=== PATIENT | female | born 1960 | race American Indian/Alaskan Native ===

== ENCOUNTER 2017-08-28 17:12 | Emergency (ER) | payer SELFPAY ==
[2017-08-28] MEDS ORDERED: MAGNESIUM SULFATE 2GM/50ML 2 GM/50 ML BAG IV ONE (17:33)
[2017-08-28] MEDS ORDERED: BENADRYL IV ONE (17:33)
[2017-08-28] MEDS ORDERED: REGLAN IV ONE (17:33)
[2017-08-28] MEDS ORDERED: XYLOCAINE TOPICAL 4% TP ONE (17:33)
[2017-08-28 17:40] LABS: Basophils % (Auto) 0.9 % (0.0-1.8); Eosinophils % (Auto) 2.3 % (0.0-4.3); Hemoglobin 11.6 gm/dl (10.1-14.3); Mean Corpuscular HGB Conc 32 % (30-34); Mean Corpuscular Hemoglobin 29 pg (28-32); Mean Corpuscular Volume 90 fl (79-97); Platelet Count 288 K/mm3 (140-440); Red Cell Distribution Width 14.7 % (13.2-15.2)
[2017-08-28] MEDS ORDERED: APRESOLINE IV ONE (17:41)
--- NOTE | 2017-08-28 17:41 | Emergency Department Report ---
ED Headache HPI - General Chief Complaint: Headache Stated Complaint: HEADACHE Time Seen by Provider: 08/28/17 18:03 Source: patient, family, EMS (ems notes not available at time of chart dictation), RN notes reviewed - History of Present Illness Initial Comments: This is a 57-year-old female. The patient is previously unknown to this provider. She has a past medical history of stroke, hypertension, high cholesterol. Patient describes a history of chronic headaches. She presents to the ER with EMS with a complaint of headache. The headache is right-sided, retro-orbital and radiates to the back of several region. Patient reports headache has been present for months, and gradually got worse over the past week. The headache increases with exposure to light, exposure to sound. The headache is not sudden or thunderclap in nature, it did not reach maximal intensity within an hour. There is no neck pain, there is no neck stiffness. No vomiting, no weakness, numbness, ataxia. Timing/Duration: other Quality: moderate Head Injury Location: frontal, temporal, occipital Recent Head Trauma: chronic headaches Modifying Factors: worse with: exposure to light Associated Symptoms: denies: confusion, fatigue, facial pain, fever/chills, flushing, nausea/vomiting, nasal congestion, nasal drainage, numbness in legs/ feet, seizures, sinus infection, stiff neck, vision changes, weakness Allergies/Adverse Reactions: Allergies No Known Allergies Allergy (Verified 08/28/17 17:18) Home Medications: Ambulatory Orders Acetaminophen [Tylenol Arthritis] 650 mg PO Q6HR PRN #30 tablet.er 08/28/17 Antacid 1 tab PO PRN PRN 08/28/17 Aspirin BABY CHEW TAB 81 mg PO DAILY 08/28/17 Atorvastatin 80 mg PO DAILY 08/28/17 Citalopram 20 mg PO DAILY 08/28/17 Colace CAP 100 mg PO PRN PRN 08/28/17 Losartan Potassium 25 mg PO DAILY 08/28/17 Metoclopramide [Reglan] 10 mg PO QID PRN #30 tablet 08/28/17 Plavix 75 mg PO DAILY 08/28/17 ED Review of Systems ROS: Stated complaint: HEADACHE Other details as noted in HPI ED Past Medical Hx - Social History Smoking Status: Never Smoker Substance Use Type: None - Medications Home Medications: Home Medications Medication Instructions Recorded Confirmed Last Taken Type Acetaminophen [Tylenol Arthritis] 650 mg PO Q6HR PRN #30 tablet.er 08/28/17 Unknown Rx Antacid 1 tab PO PRN PRN 08/28/17 08/28/17 08/28/17 History Aspirin BABY CHEW TAB 81 mg PO DAILY 08/28/17 08/28/17 08/28/17 History Atorvastatin 80 mg PO DAILY 08/28/17 08/28/17 Unknown History Citalopram 20 mg PO DAILY 08/28/17 08/28/17 08/28/17 History Colace CAP 100 mg PO PRN PRN 08/28/17 08/28/17 Unknown History Losartan Potassium 25 mg PO DAILY 08/28/17 08/28/17 08/28/17 History Metoclopramide [Reglan] 10 mg PO QID PRN #30 tablet 08/28/17 Unknown Rx Plavix 75 mg PO DAILY 08/28/17 08/28/17 08/28/17 History ED Physical Exam - General Limitations: No Limitations General appearance: alert, in no apparent distress - Head Head exam: Present: atraumatic, normocephalic, other (there is no temporal tenderness) - Eye Eye exam: Present: normal appearance, PERRL, EOMI, other (visual acuity intact to finger counting, color perception, reading at a close distance). Absent: nystagmus - ENT ENT exam: Present: normal exam, normal orophraynx, mucous membranes moist, TM's normal bilaterally, normal external ear exam - Neck Neck exam: Present: normal inspection, full ROM - Respiratory Respiratory exam: Present: normal lung sounds bilaterally. Absent: respiratory distress, chest wall tenderness - Cardiovascular Cardiovascular Exam: Present: regular rate, normal rhythm, normal heart sounds. Absent: bradycardia, tachycardia, irregular rhythm, systolic murmur, diastolic murmur, rubs, gallop - GI/Abdominal GI/Abdominal exam: Present: soft, normal bowel sounds. Absent: distended, tenderness, guarding, rebound, rigid, pulsatile mass - Extremities Exam Extremities exam: Present: normal inspection, full ROM, normal capillary refill. Absent: pedal edema, joint swelling, calf tenderness - Back Exam Back exam: Present: normal inspection, full ROM. Absent: tenderness, CVA tenderness (R), paraspinal tenderness, vertebral tenderness - Neurological Exam Neurological exam: Present: alert, oriented X3, CN II-XII intact, normal gait, other (Extraocular movements intact. Tongue midline. No facial droop. Facial sensation intact to light touch in the V1, V2, V3 distribution bilaterally. 5 and 5 strength in 4 extremities.. Sensation is intact to light touch in 4 extremities.). Absent: motor sensory deficit - Psychiatric Psychiatric exam: Present: normal affect, normal mood - Skin Skin exam: Present: warm, dry, intact, normal color. Absent: rash ED Course Vital Signs 08/28/17 08/28/17 08/28/17 17:20 17:49 18:10 Temperature 98 F Pulse Rate 79 74 Respiratory 16 16 Rate Blood Pressure 178/115 159/112 Blood Pressure 106/68 [Left] O2 Sat by Pulse 98 97 Oximetry 08/28/17 19:40 Temperature Pulse Rate 98 H Respiratory 16 Rate Blood Pressure Blood Pressure 136/63 [Left] O2 Sat by Pulse 96 Oximetry - Reevaluation(s) Reevaluation #1: 08/28/17 18:04 Differential diagnosis, including without limited to: Intracranial hemorrhage, migraine headache, tension headache, cluster headache, headache etiology not otherwise specified Assessment and plan: A 7-year-old female with acute on chronic headache. Headache not historically consistent with subarachnoid hemorrhage. Patient quite hypertensive, doubt intracranial hemorrhage, but we will obtain noncontrast CT scan of the brain to exclude spontaneous intracranial hemorrhage. Blood pressure currently in the 170s, patient's headache will be treated with Reglan, Benadryl, intranasal lidocaine, and magnesium sulfate. GCS of 15, NIH score of 0, no neck pain or neck stiffness, patient indicates no family history of aneurysmal disease. Reevaluation #2: 08/28/17 19:31 Patient feeling much improved. Vital signs improved. CT scan of the brain is pending. Reevaluation #3: 08/28/17 19:55 ct head negative for acute findings chronic findings are noted feels improved kamini be discharged repeat neuro exam within normal limits ED Medical Decision Making - Lab Data Result diagrams: 08/28/17 17:24 08/28/17 17:24 Vital Signs 08/28/17 08/28/17 17:20 17:49 Temperature 98 F Pulse Rate 79 Respiratory 16 Rate Blood Pressure 178/115 159/112 O2 Sat by Pulse 98 Oximetry Lab Results 08/28/17 08/28/17 08/28/17 Range/Units 17:24 17:24 17:24 WBC 5.0 (4.5-11.0) K/mm3 RBC 4.00 (3.65-5.03) M/mm3 Hgb 11.6 (10.1-14.3) gm/dl Hct 36.0 (30.3-42.9) % MCV 90 (79-97) fl MCH 29 (28-32) pg MCHC 32 (30-34) % RDW 14.7 (13.2-15.2) % Plt Count 288 (140-440) K/mm3 Lymph % (Auto) 47.4 H (13.4-35.0) % [place] % (Auto) 10.7 H (0.0-7.3) % Eos % (Auto) 2.3 (0.0-4.3) % Baso % (Auto) 0.9 (0.0-1.8) % Lymph # 2.4 (1.2-5.4) K/mm3 [place] # 0.5 (0.0-0.8) K/mm3 Eos # 0.1 (0.0-0.4) K/mm3 Baso # 0.0 (0.0-0.1) K/mm3 Seg Neutrophils % 38.7 L (40.0-70.0) % Seg Neutrophils # 1.9 (1.8-7.7) K/mm3 PT 13.3 (12.2-14.9) Sec. INR 0.96 (0.87-1.13) APTT 29.1 (24.2-36.6) Sec. Thrombin Time (15.1-19.6) Sec. Sodium 141 (137-145) mmol/L Potassium 3.7 (3.6-5.0) mmol/L Chloride 99.0 (98-107) mmol/L Carbon Dioxide 27 (22-30) mmol/L Anion Gap 19 mmol/L BUN 10 (7-17) mg/dL Creatinine 0.8 (0.7-1.2) mg/dL Estimated GFR > 60 ml/min BUN/Creatinine Ratio 13 % Glucose 87 (65-100) mg/dL Calcium 9.2 (8.4-10.2) mg/dL 08/28/17 Range/Units 17:24 WBC (4.5-11.0) K/mm3 RBC (3.65-5.03) M/mm3 Hgb (10.1-14.3) gm/dl Hct (30.3-42.9) % MCV (79-97) fl MCH (28-32) pg MCHC (30-34) % RDW (13.2-15.2) % Plt Count (140-440) K/mm3 Lymph % (Auto) (13.4-35.0) % [place] % (Auto) (0.0-7.3) % Eos % (Auto) (0.0-4.3) % Baso % (Auto) (0.0-1.8) % Lymph # (1.2-5.4) K/mm3 [place] # (0.0-0.8) K/mm3 Eos # (0.0-0.4) K/mm3 Baso # (0.0-0.1) K/mm3 Seg Neutrophils % (40.0-70.0) % Seg Neutrophils # (1.8-7.7) K/mm3 PT (12.2-14.9) Sec. INR (0.87-1.13) APTT (24.2-36.6) Sec. Thrombin Time 15.5 (15.1-19.6) Sec. Sodium (137-145) mmol/L Potassium (3.6-5.0) mmol/L Chloride (98-107) mmol/L Carbon Dioxide (22-30) mmol/L Anion Gap mmol/L BUN (7-17) mg/dL Creatinine (0.7-1.2) mg/dL Estimated GFR ml/min BUN/Creatinine Ratio % Glucose (65-100) mg/dL Calcium (8.4-10.2) mg/dL - EKG Data -: EKG Interpreted by Me - EKG Data When compared to previous EKG there are: previous EKG unavailable 08/28/17 18:05 Sinus tachycardia, 110 bpm, left axis deviation, left ventricular hypertrophy, left anterior fascicular block, abnormal EKG, chest pain not consistent with ST elevation myocardial infarction - Radiology Data Radiology results: pending, image reviewed Critical care attestation.: If time is entered above; I have spent that time in minutes in the direct care of this critically ill patient, excluding procedure time. ED Disposition Clinical Impression: Headache, Elevated blood pressure reading Disposition: DC-01 TO HOME OR SELFCARE Is pt being admited?: No Does the pt Need Aspirin: No Condition: Good Additional Instructions: Continue current outpatient medications. Take the headache/pain medication as needed/directed. Avoid consumption of caffeinated beverages and substances. Follow up with a primary care doctor within the next 7-10 days. Please note that blood pressure was elevated, and this should be followed up by primary care doctor as recommended. Long-term complications of hypertension and elevated blood pressure includes stroke, heart attack, disability, , paralysis, loss of quality of life. Return to the ER right away with new pain, worsened pain, migration of pain, fevers, chills, confusion, intractable nausea or vomiting, weakness, numbness, change in mental status, unsteady gait. Dr. Dave Sosa is a local primary care doctor. [facility] is a local medical clinic. Prescriptions: Acetaminophen [Tylenol Arthritis] 650 mg PO Q6HR PRN #30 tablet.er PRN Reason: Pain Metoclopramide [Reglan] 10 mg PO QID PRN #30 tablet PRN Reason: Nausea Referrals: GIN LEDBETTER MD [Staff Physician] - 3-5 Days ABUNDIO ROSE MD [Referring] - 3-5 Days LILO REMY MD [Staff Physician] - 3-5 Days [facility] [Provider Group] - 3-5 Days DAVE SOSA MD [Staff Physician] - 3-5 Days
[2017-08-28 17:48] LABS: INR 0.96 (0.87-1.13)
[2017-08-28 17:49] LABS: Partial Thromboplastin Time 29.1 Sec. (24.2-36.6)
[2017-08-28] MEDS ORDERED: DILAUDID IV ONE (18:00)
[2017-08-28 18:04] LABS: Anion Gap 19 mmol/L; BUN/Creatinine Ratio 13; Blood Urea Nitrogen 10 mg/dL (7-17); Calcium 9.2 mg/dL (8.4-10.2); Carbon Dioxide 27 mmol/L (22-30); Glucose 87 mg/dL (65-100); Potassium 3.7 mmol/L (3.6-5.0); Sodium 141 mmol/L (137-145)
[2017-08-28 19:41] VITALS: BP 136/63
--- NOTE | 2017-08-28 19:54 | Cat Scan Report ---
FINAL REPORT PROCEDURE: CT HEAD/BRAIN WO CON TECHNIQUE: Computerized tomography of the head was performed without contrast material. HISTORY: neuro deficits < 6hrs or sx present upon awakening COMPARISON: No prior studies are available for comparison. FINDINGS: Skull and scalp: Normal. Paranasal sinuses: Normal. Ventricles and subarachnoid spaces: Normal. Cerebrum: No evidence of hemorrhage, acute infarction or mass . Cerebellum and brainstem: No evidence of hemorrhage, acute infarction or mass. Vasculature: No hyperdense MCA sign Comments: Mild diffuse atrophy with mild periventricular microischemic change and central lacunar infarct disease. Basal ganglia microcalcifications. Regional area of chronic appearing ischemic change in the right frontal region blurred by motion artifact. Parafalcine calcifications. IMPRESSION: No definite acute intracranial pathology seen at this time. If symptoms persist consider MRI.
== END 2017-08-28 20:19 | disposition home or self-care (01) ==
LOC: ED 17:12
DX: R51 Headache (principal); R03.0 Elevated blood-pressure reading, without diagnosis of hypertension; Z79.82 Long term (current) use of aspirin
CPT/HCPCS: 36415; 70450; 80048; 82962; 85025; 85610; 85670; 85730; 93005; 93010; 96365; 96375; 99285; J0360; J1200; J2765; J3475

== ENCOUNTER 2018-10-31 18:00 | Inpatient (IN) | payer SELFPAY ==
--- NOTE | 2018-10-31 18:13 | Emergency Department Report ---
HPI - General Time Seen by Provider: 10/31/18 18:02 - HPI HPI: 58-year-old female presents to the emergency department via EMS from home after having a syncopal or unresponsive episode. The patient also urinated on herself during this unresponsive episode. This was witnessed by the patient's daughter who is not currently at bedside. The patient is currently awake and alert and just complains of a headache and some feelings of fatigue and generalized weakness. She has a past medical history of a CVA from October of last year that she says did not leave her with any residual deficits but did cause intermittent headaches. The patient's is at bedside and says that he noticed some rigidity to her right arm and she was drooling at the time that she was unresponsive. He helped get her down onto the ground. She also has a history of hypertension. She did not receive anything for her symptoms prior to presentation. She denies any tobacco, illicit drug use or alcohol abuse. ED Past Medical Hx - Social History Smoking Status: Never Smoker Substance Use Type: None - Medications Home Medications: Home Medications Medication Instructions Recorded Confirmed Last Taken Type Aspirin BABY CHEW TAB 81 mg PO DAILY 08/28/17 10/31/18 10/31/18 History Atorvastatin 80 mg PO DAILY 08/28/17 10/31/18 10/31/18 History Citalopram 40 mg PO DAILY 08/28/17 10/31/18 10/31/18 History Plavix 75 mg PO DAILY 08/28/17 10/31/18 10/31/18 History Cyclobenzaprine [Flexeril] 10 mg PO DAILY 10/31/18 10/31/18 10/31/18 History Losartan/Hydrochlorothiazide PO DAILY 10/31/18 10/31/18 History [Losartan-Hctz 100-25 mg Tab] Magnesium Oxide 400 mg PO DAILY 10/31/18 10/31/18 10/31/18 History Meclizine [Antivert] 25 mg PO TID 10/31/18 10/31/18 10/31/18 History ED Review of Systems ROS: Stated complaint: SYNCOPY Other details as noted in HPI Comment: All other systems reviewed and negative Constitutional: weakness. denies: chills, fever Eyes: denies: eye pain, vision change ENT: denies: ear pain, throat pain Respiratory: denies: cough, shortness of breath Cardiovascular: syncope. denies: chest pain Gastrointestinal: denies: abdominal pain, vomiting Genitourinary: denies: dysuria, discharge Musculoskeletal: denies: back pain, arthralgia Skin: denies: rash, lesions Neurological: headache Physical Exam - Physical Exam Physical Exam: GENERAL: The patient is well-developed well-nourished. HEENT: Normocephalic. Atraumatic. Patient has moist mucous membranes. EYES: Extraocular motions are intact. Pupils are equal and reactive to light bilaterally. NECK: Supple. Trachea is midline. CHEST/LUNGS: Clear to auscultation. There is no respiratory distress noted. HEART/CARDIOVASCULAR: Regular. There is no tachycardia. There is no obvious murmur. ABDOMEN: Abdomen is soft, nontender. Patient has normal bowel sounds. There is no abdominal distention. SKIN: Skin is warm and dry. NEURO: The patient is awake, alert, and oriented. The patient is cooperative. There is subjective decreased sensation to the right side of the face and right upper extremity compared to the left. The patient talks slowly and slightly but no obvious slurring or aphasia. No facial asymmetry. The patient will allow some left upper extremity drift but then can raise up the arm again showing full muscle strength. MUSCULOSKELETAL: There is no tenderness or deformity. There is no evidence of acute injury. ED Course - Consultations Consultation #1: 10/31/18 21:27 I spoke with the telemedicine neurologist, Dr. Mitchell, who saw the patient in the room via secured entrance monitor. He agrees that the patient has a presentation consistent with seizure and may have some postictal Villa's paralysis but also says that a TIA is possible and/or in the differential. With the patient's previous history of CVA, and her subjective decreased sensation, he recommends admission to the hospital for further evaluation. ED Medical Decision Making - Lab Data Result diagrams: 10/31/18 18:17 10/31/18 18:17 - EKG Data -: EKG Interpreted by Me EKG shows normal: sinus rhythm, axis (left axis deviation), intervals, QRS complexes (LVH), ST-T waves (flattening of the T waves) - EKG Data When compared to previous EKG there are: previous EKG unavailable Interpretation: other (sinus rhythm, left axis deviation, LVH, flattening of the T waves) - Radiology Data Radiology results: report reviewed PROCEDURE: CT head without contrast. TECHNIQUE: Computerized tomography of the head was performed without contrast material. HISTORY: Stroke symptoms. COMPARISON: CT head 08/28/2017. FINDINGS: The ventricles are normal in size. The partida matter and white matter appear normal. There are no mass lesions. There is no intracranial hemorrhage. The calvarium appears intact. A few of the right mastoid air cells are opacified. The paranasal sinuses are clear as far as visualized. IMPRESSION: Normal study of the brain. Mild right mastoiditis. Transcribed By: MARY Dictated By: STEPHEN GONZALEZ MD Electronically Authenticated By: STEPHEN GONZALEZ MD Signed Date/Time: 10/31/181921 - Medical Decision Making This patient presents to the emergency department via EMS after she was seen going unresponsive. There was some seizure-like activity with her right side going rigid and some foaming at the mouth and this was followed by what appears to be a postictal state. However the patient presents to the emergency department awake and alert and has subjective right-sided decreased sensation and some questionable left upper extremity drift. CT of the head without co ntrast does not show any bleed, shift, mass, ischemia, or any other acute process. Patient was seen by telemedicine neurology concurs that the patient does not appear to be a TPA candidate and that the most likely differential is a seizure with some postictal strokelike symptoms, versus a TIA. It was recommended that the patient be admitted to the hospital for a brain MRI and further evaluation. Patient's labs have been unremarkable and do not show any etiology of her symptoms. There is been no further seizure-like activity or decompensation. The patient will be admitted to the hospital for further evaluation and treatment and was accepted for admission by the hospitalist, Dr. Dumont. - Differential Diagnosis TIA, Villa's paralysis, seizure with postictal state, dysrhythmia Critical Care Time: No Critical care attestation.: If time is entered above; I have spent that time in minutes in the direct care of this critically ill patient, excluding procedure time. ED Disposition Clinical Impression: Seizure-like activity, Right sided numbness, Generalized weakness Disposition: OP ADMIT IP TO THIS HOSP Is pt being admited?: Yes Does the pt Need Aspirin: Yes Condition: Stable Time of Disposition: 21:34 - Assessment Assessment Interval: Baseline - Level of Consciousness 1a. Level of Consciousness: alert/keenly responsive - LOC Questions 1b. LOC Questions: answers both correctly - LOC Command 1c. LOC Commands: performs tasks correctly - Best Gaze 2. Best Gaze: normal - Visual 3. Visual: no visual loss - Facial Palsy 4. Facial Palsy: normal symmetrical movement - Motor Arm 5b. Motor Arm Right: no drift 5a. Motor Arm Left: drift - Motor Leg 6b. Motor Leg Right: no drift 6a. Motor Leg Left: no drift - Limb Ataxia 7. Limb Ataxia: absent - Sensory 8. Sensory: mild/moderate sensory loss - Best Language 9. Best Language: no aphasia - Dysarthria 10. Dysarthria: normal - Extinction and Inattention 11. Extinction/Inattention: no abnormality - Scoring Total Score: 2 Stroke Severity: Minor Stroke
[2018-10-31 18:44] LABS: Basophils # (Auto) 0.1 K/mm3 (0.0-0.1); Basophils % (Auto) 0.7 % (0.0-1.8); Eosinophils # (Auto) 0.7 K/mm3 (0.0-0.4); Eosinophils % (Auto) 8.8 % (0.0-4.3); Hematocrit 30.6 % (30.3-42.9); Hemoglobin 10.7 gm/dl (10.1-14.3); Lymphocytes # (Auto) 3.1 K/mm3 (1.2-5.4); Lymphocytes % (Auto) 38.1 % (13.4-35.0); Mean Corpuscular HGB Conc 35 % (30-34); Mean Corpuscular Volume 90 fl (79-97); Monocytes # (Auto) 0.6 K/mm3 (0.0-0.8); Platelet Count 297 K/mm3 (140-440); Red Blood Count 3.39 M/mm3 (3.65-5.03); Red Cell Distribution Width 15.1 % (13.2-15.2)
[2018-10-31 18:47] LABS: INR 0.91 (0.87-1.13); Partial Thromboplastin Time 25.2 Sec. (24.2-36.6)
[2018-10-31 18:48] LABS: Thrombin Time 15.9 Sec. (15.1-19.6)
[2018-10-31 18:54] LABS: Alanine Aminotransferase 27 units/L (7-56); Albumin 4.3 g/dL (3.9-5); BUN/Creatinine Ratio 22; Blood Urea Nitrogen 24 mg/dL (7-17); Calcium 9.6 mg/dL (8.4-10.2); Hemolysis Index 6
--- NOTE | 2018-10-31 19:22 | Cat Scan Report ---
FINAL REPORT PROCEDURE: CT head without contrast. TECHNIQUE: Computerized tomography of the head was performed without contrast material. HISTORY: Stroke symptoms. COMPARISON: CT head 08/28/2017. FINDINGS: The ventricles are normal in size. The partida matter and white matter appear normal. There are no mass lesions. There is no intracranial hemorrhage. The calvarium appears intact. A few of the right mastoi d air cells are opacified. The paranasal sinuses are clear as far as visualized. IMPRESSION: Normal study of the brain. Mild right mastoiditis.
[2018-10-31] MEDS ORDERED: KEPPRA 1,000 MG/NS 0.75% 100ML 1,000 MG/100 ML BAG IV ONE (19:39)
[2018-10-31 21:34] LABS: Bacteria,Urine 3+ /HPF (Negative); Bilirubin,Urine NEG (Negative); Blood,Urine SM (Negative); Color,Urine Yellow (Yellow); Hyaline Casts,Urine 1 /LPF; Mucus,Urine FEW /HPF; Protein,Urine <15 mg/dL mg/dL (Negative); Urobilinogen,Urine < 2.0 mg/dL (<2.0)
[2018-10-31] MEDS ORDERED: BABY ASPIRIN PO ONE (21:35)
[2018-10-31 21:42] LABS: Amphetamine Screen,Urine PRESUMPTIVE NEGATIVE; Benzodiazepines Screen,Urine PRESUMPTIVE NEGATIVE; Cannabinoid Screen,Urine PRESUMPTIVE NEGATIVE; Cocaine Screen,Urine PRESUMPTIVE NEGATIVE; Methadone Screen,Urine PRESUMPTIVE NEGATIVE; Opiate Screen,Urine PRESUMPTIVE NEGATIVE
--- NOTE | 2018-10-31 22:07 | History and Physical Report ---
History of Present Illness Date of examination: 10/31/18 History of present illness: 58-year-old woman with a history of CVA, depression comes to emergency room with complaints of having a seizure today, unclear how long the seizure lasted for. She complains of right leg weakness and numbness. She states she's had seizures before this year, not on any antiepileptic Review of systems Constitutional: no weight loss, chills, fever Ears, eyes, nose, mouth and throat: no nasal congestion, no nasal discharge, no sinus pressure, no vision change, no red eye. Neck: No neck pain or rigidity. Cardiovascular: no palpitations, chest pain Respiratory: no cough, shortness of breath Gastrointestinal: no hematochezia, abdominal pain Genitourinary : no frequency , no hematuria Musculoskeletal: no joint swelling or muscle ache Integumentary: no rash, no pruritis Neurological: + parathesias, focal weakness Endocrine: no cold or heat intolerance, no polyuria or polydipsia Hematologic/Lymphatic: no easy bruising, no easy bleeding, no gland swelling Allergic/Immunologic: no urticaria, no angioedema. PAST MEDICAL HISTORY: CVA, depression PAST SURGICAL HISTORY: None SOCIAL HISTORY: Denies alcohol, drugs, tobacco FAMILY HISTORY: Hypertension Medications and Allergies Allergies Allergy/AdvReac Type Severity Reaction Status Date / Time No Known Allergies Allergy Verified 08/28/17 17:18 Home Medications Medication Instructions Recorded Confirmed Last Taken Type Aspirin BABY CHEW TAB 81 mg PO DAILY 08/28/17 10/31/18 10/31/18 History Atorvastatin 80 mg PO DAILY 08/28/17 10/31/18 10/31/18 History Citalopram 40 mg PO DAILY 08/28/17 10/31/18 10/31/18 History Plavix 75 mg PO DAILY 08/28/17 10/31/18 10/31/18 History Cyclobenzaprine [Flexeril] 10 mg PO DAILY 10/31/18 10/31/18 10/31/18 History Losartan/Hydrochlorothiazide PO DAILY 10/31/18 10/31/18 History [Losartan-Hctz 100-25 mg Tab] Magnesium Oxide 400 mg PO DAILY 10/31/18 10/31/18 10/31/18 History Meclizine [Antivert] 25 mg PO TID 10/31/18 10/31/18 10/31/18 History Exam - Physical Exam Narrative exam: General Apperance: The patient lying in bed, breathing comfortable HEENT: Normocephalic, atraumatic. Pupils equally round and reactive to light, EOMI, no sclericterus or JVD or thyromegaly or nodule. , no carotid bruit, mucous membranes moist, no exudate or erythema Heart: S1-S2, regular is rhythm Lungs: Clear to auscultation bilaterally, breathing comfortable Abdomen: Positive bowel sounds, soft, nontender, nondistended, no organomegaly Extremities: No edema cyanosis clubbing Skin: no rash, nodule, warm and dry Neuro: cranial nerves 2-12 intact, speech is fluent, motor/sensory intact - Constitutional Vitals: Temp Pulse Resp BP Pulse Ox 98.1 F 74 19 111/78 97 10/31/18 18:18 10/31/18 19:31 10/31/18 19:31 10/31/18 19:31 10/31/18 19:31 Results - Labs CBC & Chem 7: 10/31/18 18:17 10/31/18 18:17 Labs: Abnormal lab results 10/31/18 10/31/18 Range/Units 18:17 18:17 RBC 3.39 L (3.65-5.03) M/mm3 MCHC 35 H (30-34) % Lymph % (Auto) 38.1 H (13.4-35.0) % Eos % (Auto) 8.8 H (0.0-4.3) % Eos # 0.7 H (0.0-0.4) K/mm3 Potassium 5.1 H (3.6-5.0) mmol/L BUN 24 H (7-17) mg/dL Glucose 129 H (65-100) mg/dL - Imaging and Cardiology CT Scan - head: report reviewed Assessment and Plan Assessment Acute onset seizure with right side numbness History of CVA Depression Plan Admit to medicine Start IV Ativan as needed for seizure activity Obtain MRI of the head, do neuro checks, start aspirin DVT prophylaxis
[2018-10-31] MEDS ORDERED: SODIUM CHLORIDE FLUSH SYRINGE 10 ML IV PRN (22:38)
[2018-10-31] MEDS ORDERED: TYLENOL PO PRN (22:38)
[2018-10-31] MEDS ORDERED: ATIVAN IV PRN (22:38)
[2018-10-31] MEDS ORDERED: ZOFRAN IV PRN (22:38)
[2018-11-01] MEDS ORDERED: BABY ASPIRIN ONE (00:01)
[2018-11-01 05:39] LABS: Basophils # (Auto) 0.1 K/mm3 (0.0-0.1); Eosinophils # (Auto) 0.6 K/mm3 (0.0-0.4); Eosinophils % (Auto) 8.8 % (0.0-4.3); Hematocrit 30.8 % (30.3-42.9); Hemoglobin 10.5 gm/dl (10.1-14.3); Lymphocytes # (Auto) 2.6 K/mm3 (1.2-5.4); Lymphocytes % (Auto) 40.1 % (13.4-35.0); Mean Corpuscular HGB Conc 34 % (30-34); Mean Corpuscular Volume 90 fl (79-97); Monocytes # (Auto) 0.5 K/mm3 (0.0-0.8); Platelet Count 267 K/mm3 (140-440); Red Blood Count 3.42 M/mm3 (3.65-5.03)
[2018-11-01 05:42] LABS: BUN/Creatinine Ratio 22; Blood Urea Nitrogen 20 mg/dL (7-17); Calcium 9.3 mg/dL (8.4-10.2); Hemolysis Index 2
[2018-11-01] MEDS ORDERED: NON-FORMULARY (Aspirin Baby Chew Tab 81 MG) PO SCH (10:00)
[2018-11-01] MEDS ORDERED: AFLURIA QUAD 2018-2019 SYRINGE IM ONE (12:00)
[2018-11-01] MEDS ORDERED: PNEUMOVAX 23 IM ONE (12:00)
--- NOTE | 2018-11-01 12:42 | Vascular Lab Report ---
FINAL REPORT EXAM: VL CAROTID DUPLEX BILAT HISTORY: right leg numbness and weakness COMPARISON: None. TECHNIQUE: Duplex Doppler ultrasound of the carotid arteries was performed. FINDINGS: There is mild intimal thickening of the right common carotid artery and internal carotid artery witho ut significant stenosis (less than 50 percent). There is antegrade flow in the right vertebral artery . There is mild intimal thickening of the left common carotid artery and internal carotid artery withou t significant stenosis (less than 50 percent). There is antegrade flow in the left vertebral artery. Peak systolic velocities (cm/sec) are as follows: Right common carotid artery: 78.4 Right internal carotid artery: 61.5 Right external carotid artery: 48.1 Left common carotid artery: 100.6 Left internal carotid artery: 78.7 Left external carotid artery: 95.8 Peak systolic velocity ratio between the right internal carotid artery and the right common carotid a rtery: 0.78 Peak systolic velocity ratio between the left internal carotid artery and left common carotid artery: 0.78 IMPRESSION: No significant stenosis (less than 50 percent) of the bilateral carotid arteries.
--- NOTE | 2018-11-01 14:08 | Magnetic Resonance Report ---
MRI OF THE BRAIN WITHOUT CONTRAST: HISTORY: Seizure PROCEDURE: Multiplanar, multisequence MR imaging of the brain without IV contrast was performed. FINDINGS: There is a chronic focal infarct in the superior right temporal lobe along the sylvian fissure measuring approximately 3.3 x 2.5 cm in axial plane. There are mild nonspecific chronic white matter changes bilaterally, right greater than left. No evidence for acute ischemia, hemorrhage or mass. No extra-axial fluid collection. The midline structures are central. The basal cisterns are patent. Normal ventricular size. The orbital cavities and sella turcica demonstrate no abnormality. The visualized paranasal sinuses and mastoid air cells are well aerated. IMPRESSION: No acute intracranial process. Chronic cortical infarct in the superior right temporal lobe. Chronic white matter changes.
[2018-11-01] MEDS: BABY ASPIRIN PO SCH (14:34)
[2018-11-01] MEDS: FLEXERIL PO SCH (14:34)
[2018-11-01] MEDS: PLAVIX PO SCH (14:34)
[2018-11-01] MEDS: celeXA PO SCH (14:35)
[2018-11-01] MEDS: LOVENOX SUB-Q SCH (14:38)
[2018-11-01] MEDS: SODIUM CHLORIDE FLUSH SYRINGE 10 ML IV SCH ×2 (14:43→21:24)
--- NOTE | 2018-11-01 16:52 | Progress Note ---
Assessment and Plan Assessment and plan: Seizure disorder - Patient is on Keppra - No seizure episode after admission, neurology evaluated and recommended EEG Left lower extremity weakness, chronic - Patient said it was getting worse at presentation, but unusual for her, is getting intermittently worse - CT head was negative, MRI with and without contrast showed old infarct, no new changes - Continue plavix and atorvastatin DVT prophylaxis - on Lovenox Disposition - Possibly tomorrow after EEG is read by neurologist. History Interval history: Patient was seen and evaluated this morning, patient says she is feeling well, LLE weakness is at baseline. Hospitalist Physical - Physical exam Narrative exam: Not in cardiopulmonary distress. The patient appeared well nourished and normally developed. Vital signs as documented. Head exam is unremarkable. No scleral icterus . Neck is without jugular venous distension, thyromegaly, or carotid bruits. Lungs are clear to auscultation. Cardiac exam reveals regular rate and Rhythm. First and second heart sounds normal. No murmurs, rubs or gallops. Abdominal exam reveals normal bowel sounds, no masses, no organomegaly and no aortic enlargement. Extremities are nonedematous and both femoral and pedal pulses are normal. 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 mild chronic LLE weakness. - Constitutional Vitals: Temp Pulse Resp BP Pulse Ox 97.3 F L 85 20 119/84 96 11/01/18 16:24 11/01/18 16:24 11/01/18 16:24 11/01/18 16:24 11/01/18 16:24 Results - Labs CBC & Chem 7: 11/01/18 04:35 11/01/18 04:35 Labs: Laboratory Last Values WBC 6.4 K/mm3 (4.5-11.0) 11/01/18 04:35 RBC 3.42 M/mm3 (3.65-5.03) L 11/01/18 04:35 Hgb 10.5 gm/dl (10.1-14.3) 11/01/18 04:35 Hct 30.8 % (30.3-42.9) 11/01/18 04:35 MCV 90 fl (79-97) 11/01/18 04:35 MCH 31 pg (28-32) 11/01/18 04:35 MCHC 34 % (30-34) 11/01/18 04:35 RDW 15.0 % (13.2-15.2) 11/01/18 04:35 Plt Count 267 K/mm3 (140-440) 11/01/18 04:35 Lymph % (Auto) 40.1 % (13.4-35.0) H 11/01/18 04:35 [place] % (Auto) 7.0 % (0.0-7.3) 11/01/18 04:35 Eos % (Auto) 8.8 % (0.0-4.3) H 11/01/18 04:35 Baso % (Auto) 1.0 % (0.0-1.8) 11/01/18 04:35 Lymph # 2.6 K/mm3 (1.2-5.4) 11/01/18 04:35 [place] # 0.5 K/mm3 (0.0-0.8) 11/01/18 04:35 Eos # 0.6 K/mm3 (0.0-0.4) H 11/01/18 04:35 Baso # 0.1 K/mm3 (0.0-0.1) 11/01/18 04:35 Seg Neutrophils % 43.1 % (40.0-70.0) 11/01/18 04:35 Seg Neutrophils # 2.8 K/mm3 (1.8-7.7) 11/01/18 04:35 PT 12.8 Sec. (12.2-14.9) 10/31/18 18:17 INR 0.91 (0.87-1.13) 10/31/18 18:17 APTT 25.2 Sec. (24.2-36.6) 10/31/18 18:17 Thrombin Time 15.9 Sec. (15.1-19.6) 10/31/18 18:17 Sodium 138 mmol/L (137-145) 11/01/18 04:35 Potassium 4.0 mmol/L (3.6-5.0) D 11/01/18 04:35 Chloride 100.8 mmol/L (98-107) 11/01/18 04:35 Carbon Dioxide 26 mmol/L (22-30) 11/01/18 04:35 Anion Gap 15 mmol/L 11/01/18 04:35 BUN 20 mg/dL (7-17) H 11/01/18 04:35 Creatinine 0.9 mg/dL (0.7-1.2) 11/01/18 04:35 Estimated GFR > 60 ml/min 11/01/18 04:35 BUN/Creatinine Ratio 22 % 11/01/18 04:35 Glucose 93 mg/dL (65-100) 11/01/18 04:35 Calcium 9.3 mg/dL (8.4-10.2) 11/01/18 04:35 Total Bilirubin 0.40 mg/dL (0.1-1.2) 10/31/18 18:17 AST 24 units/L (5-40) 10/31/18 18:17 ALT 27 units/L (7-56) 10/31/18 18:17 Alkaline Phosphatase 99 units/L (35-129) 10/31/18 18:17 Troponin T < 0.010 ng/mL (0.00-0.029) 10/31/18 18:17 Total Protein 8.2 g/dL (6.3-8.2) 10/31/18 18:17 Albumin 4.3 g/dL (3.9-5) 10/31/18 18:17 Albumin/Globulin Ratio 1.1 % 10/31/18 18:17 Urine Color Yellow (Yellow) 10/31/18 Unknown Urine Turbidity Clear (Clear) 10/31/18 Unknown Urine pH 5.0 (5.0-7.0) 10/31/18 Unknown Ur Specific [place] 1.010 (1.003-1.030) 10/31/18 Unknown Urine Protein <15 mg/dl mg/dL (Negative) 10/31/18 Unknown Urine Glucose (UA) Neg mg/dL (Negative) 10/31/18 Unknown Urine Ketones Neg mg/dL (Negative) 10/31/18 Unknown Urine Blood Sm (Negative) 10/31/18 Unknown Urine Nitrite Pos (Negative) 10/31/18 Unknown Urine Bilirubin Neg (Negative) 10/31/18 Unknown Urine Urobilinogen < 2.0 mg/dL (<2.0) 10/31/18 Unknown Ur Leukocyte Esterase Tr (Negative) 10/31/18 Unknown Urine WBC (Auto) 5.0 /HPF (0.0-6.0) 10/31/18 Unknown Urine RBC (Auto) 1.0 /HPF (0.0-6.0) 10/31/18 Unknown U Epithel Cells (Auto) 1.0 /HPF (0-13.0) 10/31/18 Unknown Urine Bacteria (Auto) 3+ /HPF (Negative) 10/31/18 Unknown Hyaline Casts 1 /LPF 10/31/18 Unknown Urine Mucus Few /HPF 10/31/18 Unknown Urine Opiates Screen Presumptive negative 10/31/18 Unknown Urine Methadone Screen Presumptive negative 10/31/18 Unknown Ur Barbiturates Screen Presumptive negative 10/31/18 Unknown Ur Phencyclidine Scrn Presumptive negative 10/31/18 Unknown Ur Amphetamines Screen Presumptive negative 10/31/18 Unknown U Benzodiazepines Scrn Presumptive negative 10/31/18 Unknown Urine Cocaine Screen Presumptive negative 10/31/18 Unknown U Marijuana (THC) Screen Presumptive negative 10/31/18 Unknown Drugs of Abuse Note Disclamer 10/31/18 Unknown Plasma/Serum Alcohol < 0.01 % (0-0.07) 10/31/18 18:17
--- NOTE | 2018-11-01 18:25 | Consultation ---
History of Present Illness Consult date: 11/01/18 Reason for Consult: seizure Chief complaint: This is a 58 YO F with history of stroke who presented to the ED with a spell quite suspicious for seizure. Pt with jerking, loss of consciouness, incontinence. Denied tongue biting. Significant other at bedside says she has had at least 3-4 of these but they did not know what they were. At baseline on my arrival today, has amnesia to most events. Past History Past Medical History: stroke Past Surgical History: No surgical history Social history: , lives with family Family history: other (seizures in several family members) Medications and Allergies Allergies Allergy/AdvReac Type Severity Reaction Status Date / Time No Known Allergies Allergy Verified 08/28/17 17:18 Home Medications Medication Instructions Recorded Confirmed Last Taken Type Aspirin BABY CHEW TAB 81 mg PO DAILY 08/28/17 10/31/18 10/31/18 History Atorvastatin 80 mg PO DAILY 08/28/17 10/31/18 10/31/18 History Citalopram 40 mg PO DAILY 08/28/17 10/31/18 10/31/18 History Plavix 75 mg PO DAILY 08/28/17 10/31/18 10/31/18 History Cyclobenzaprine [Flexeril] 10 mg PO DAILY 10/31/18 10/31/18 10/31/18 History Losartan/Hydrochlorothiazide 100 mg PO DAILY 10/31/18 11/01/18 10/31/18 History [Losartan-Hctz 100-25 mg Tab] Magnesium Oxide 400 mg PO DAILY 10/31/18 10/31/18 10/31/18 History Meclizine [Antivert] 25 mg PO TID 10/31/18 10/31/18 10/31/18 History Active Meds: Active Medications Acetaminophen (Tylenol) 650 mg PO Q4H PRN PRN Reason: Pain MILD(1-3)/Fever >100.5/VALENTIN Aspirin (Baby Aspirin) 81 mg PO QDAY [facility] Last Admin: 11/01/18 14:34 Dose: 81 mg Documented by: Atorvastatin Calcium (Lipitor) 80 mg PO DAILY [facility] Last Admin: 11/01/18 14:33 Dose: 80 mg Documented by: Citalopram Hydrobromide (Celexa) 40 mg PO DAILY [facility] Last Admin: 11/01/18 14:35 Dose: 40 mg Documented by: Clopidogrel Bisulfate (Plavix) 75 mg PO DAILY [facility] Last Admin: 11/01/18 14:34 Dose: 75 mg Documented by: Cyclobenzaprine HCl (Flexeril) 10 mg PO DAILY [facility] Last Admin: 11/01/18 14:34 Dose: 10 mg Documented by: Enoxaparin Sodium (Lovenox) 40 mg SUB-Q QDAY [facility] Last Admin: 11/01/18 14:38 Dose: 40 mg Documented by: Lorazepam (Ativan) 2 mg IV Q4H PRN PRN Reason: Seizures Ondansetron HCl (Zofran) 4 mg IV Q4H PRN PRN Reason: Nausea And Vomiting Sodium Chloride (Sodium Chloride Flush Syringe 10 Ml) 10 ml IV BID [facility] Last Admin: 11/01/18 14:43 Dose: 10 ml Documented by: Sodium Chloride (Sodium Chloride Flush Syringe 10 Ml) 10 ml IV PRN PRN PRN Reason: LINE FLUSH Review of Systems Neurological: seizures Physical Examination - Vital Signs Vital Signs: Vital Signs Pulse Ox 99 10/31/18 18:09 - Constitutional General appearance: comfortable - EENT EENT: Present: PERRL, hearing intact, vision intact - Respiratory Respiratory: Present: lungs clear - Cardiovascular Cardiovascular: Present: regular rate - Gastrointestinal Gastrointestinal: Present: normoactive bowel sounds - Neurologic Cranial nerve examination: PERRL, EOMI, VFF, V1/V2/V3 grossly intact, face symmetric, tongue midline Motor examination - right side: 5/5: biceps, triceps, wrist flexion, wrist exte nsion, radio director, hip flexors, knee extensors, dorsiflexion, toe extension (EHL), plantarflexion Motor examination - left side: 5/5: biceps, triceps, wrist flexion, wrist extension, radio director, hip flexors, knee extensors, dorsiflexion, toe extension (EHL), plantarflexion Detailed sensory examination: light touch, pain Reflex and gait examination: normal gait Reflexes: 1+: ankle, bicep, knee, tricep - Assessment Assessment Interval: Baseline - Level of Consciousness 1a. Level of Consciousness: alert/keenly responsive - LOC Questions 1b. LOC Questions: answers both correctly - LOC Command 1c. LOC Commands: performs tasks correctly - Best Gaze 2. Best Gaze: normal - Visual 3. Visual: no visual loss - Facial Palsy 4. Facial Palsy: normal symmetrical movement - Motor Arm 5b. Motor Arm Right: no drift - Motor Leg 6a. Motor Leg Left: no drift - Limb Ataxia 7. Limb Ataxia: absent - Sensory 8. Sensory: mild/moderate sensory loss - Best Language 9. Best Language: no aphasia - Dysarthria 10. Dysarthria: normal - Extinction and Inattention 11. Extinction/Inattention: no abnormality Results - Laboratory Findings CBC and BMP: 11/01/18 04:35 11/01/18 04:35 Abnormal Lab Findings: Abnormal Labs 10/31/18 10/31/18 11/01/18 18:17 18:17 04:35 RBC 3.39 L 3.42 L MCHC 35 H Lymph % (Auto) 38.1 H 40.1 H Eos % (Auto) 8.8 H 8.8 H Eos # 0.7 H 0.6 H Potassium 5.1 H BUN 24 H Glucose 129 H 11/01/18 04:35 RBC MCHC Lymph % (Auto) Eos % (Auto) Eos # Potassium BUN 20 H Glucose - Diagnostic Findings Additional findings: MRI Brain no zarina- chronic r temporal infarct, nothing acute Assessment and Plan Intractable seizure Recommend: MRI Brain no zarina reviewed, needs zarina as well, ordered. Will also need EEG Since pt has had several of these will treat, starting Keppra, 100 mg load, 500 mg BID Pt says she does not drive but reviewed [place] law with seizure and driving with her and SO Seizure precautions Ativan PRN sz > 3 mins Continue care for all medical issues as you are doing Follow up with neurology outpatient Call with questions.
[2018-11-01] MEDS ORDERED: KEPPRA 1,000 MG in NACL 0.9% 100 ML IV ONE (18:30)
[2018-11-01] MEDS ORDERED: KEPPRA 1,000 MG/NS 0.75% 100ML 1,000 MG/100 ML BAG IV ONE (19:00)
[2018-11-02] MEDS: FLEXERIL PO SCH (09:41)
[2018-11-02] MEDS: KEPPRA PO SCH ×2 (09:41→21:43)
[2018-11-02] MEDS: PLAVIX PO SCH (09:41)
[2018-11-02] MEDS: celeXA PO SCH (09:42)
[2018-11-02] MEDS: LOVENOX SUB-Q SCH (09:44)
[2018-11-02] MEDS: BABY ASPIRIN PO SCH (09:44)
[2018-11-02] MEDS: SODIUM CHLORIDE FLUSH SYRINGE 10 ML IV SCH ×2 (09:44→21:44)
--- NOTE | 2018-11-02 15:30 | Magnetic Resonance Report ---
MR BRAIN WITH CONTRAST History: Seizure. Technique: Axial and coronal T1 postcontrast. Coronal flair. Findings: Compared to the noncontrast MR brain performed 11/01/09. Focal chronic infarct in the superior right temporal lobe and nonspecific chronic white matter changes are again noted. The remainder of the brain parenchyma is within normal limits. There is no abnormal enhancement following IV contrast. Impression: Chronic right temporal infarct and chronic white matter changes. Addition of IV contrast fails to demonstrate additional findings.
--- NOTE | 2018-11-02 16:08 | Progress Note ---
Assessment and Plan Assessment and plan: Seizure disorder - Patient is on Keppra - No seizure episode after admission, neurology evaluated and recommended EEG Left lower extremity weakness, chronic - Patient said it was getting worse at presentation, but unusual for her, is getting intermittently worse - CT head was negative, MRI with and without contrast showed old infarct, no new changes - Continue plavix and atorvastatin DVT prophylaxis - on Lovenox Disposition - Possibly tomorrow after EEG is read by neurologist. History Interval history: Patient was seen and evaluated this morning, patient says she is feeling well, LLE weakness is at baseline. Hospitalist Physical - Physical exam Narrative exam: Not in cardiopulmonary distress. The patient appeared well nourished and normally developed. Vital signs as documented. Head exam is unremarkable. No scleral icterus . Neck is without jugular venous distension, thyromegaly, or carotid bruits. Lungs are clear to auscultation. Cardiac exam reveals regular rate and Rhythm. First and second heart sounds normal. No murmurs, rubs or gallops. Abdominal exam reveals normal bowel sounds, no masses, no organomegaly and no aortic enlargement. Extremities are nonedematous and both femoral and pedal pulses are normal. 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 mild chronic LLE weakness. - Constitutional Vitals: Temp Pulse Resp BP Pulse Ox 98.7 F 74 20 109/71 97 11/02/18 11:54 11/02/18 11:54 11/02/18 11:54 11/02/18 11:54 11/02/18 11:54 Results - Labs CBC & Chem 7: 11/01/18 04:35 11/01/18 04:35 Labs: Laboratory Last Values WBC 6.4 K/mm3 (4.5-11.0) 11/01/18 04:35 RBC 3.42 M/mm3 (3.65-5.03) L 11/01/18 04:35 Hgb 10.5 gm/dl (10.1-14.3) 11/01/18 04:35 Hct 30.8 % (30.3-42.9) 11/01/18 04:35 MCV 90 fl (79-97) 11/01/18 04:35 MCH 31 pg (28-32) 11/01/18 04:35 MCHC 34 % (30-34) 11/01/18 04:35 RDW 15.0 % (13.2-15.2) 11/01/18 04:35 Plt Count 267 K/mm3 (140-440) 11/01/18 04:35 Lymph % (Auto) 40.1 % (13.4-35.0) H 11/01/18 04:35 [place] % (Auto) 7.0 % (0.0-7.3) 11/01/18 04:35 Eos % (Auto) 8.8 % (0.0-4.3) H 11/01/18 04:35 Baso % (Auto) 1.0 % (0.0-1.8) 11/01/18 04:35 Lymph # 2.6 K/mm3 (1.2-5.4) 11/01/18 04:35 [place] # 0.5 K/mm3 (0.0-0.8) 11/01/18 04:35 Eos # 0.6 K/mm3 (0.0-0.4) H 11/01/18 04:35 Baso # 0.1 K/mm3 (0.0-0.1) 11/01/18 04:35 Seg Neutrophils % 43.1 % (40.0-70.0) 11/01/18 04:35 Seg Neutrophils # 2.8 K/mm3 (1.8-7.7) 11/01/18 04:35 PT 12.8 Sec. (12.2-14.9) 10/31/18 18:17 INR 0.91 (0.87-1.13) 10/31/18 18:17 APTT 25.2 Sec. (24.2-36.6) 10/31/18 18:17 Thrombin Time 15.9 Sec. (15.1-19.6) 10/31/18 18:17 Sodium 138 mmol/L (137-145) 11/01/18 04:35 Potassium 4.0 mmol/L (3.6-5.0) D 11/01/18 04:35 Chloride 100.8 mmol/L (98-107) 11/01/18 04:35 Carbon Dioxide 26 mmol/L (22-30) 11/01/18 04:35 Anion Gap 15 mmol/L 11/01/18 04:35 BUN 20 mg/dL (7-17) H 11/01/18 04:35 Creatinine 0.9 mg/dL (0.7-1.2) 11/01/18 04:35 Estimated GFR > 60 ml/min 11/01/18 04:35 BUN/Creatinine Ratio 22 % 11/01/18 04:35 Glucose 93 mg/dL (65-100) 11/01/18 04:35 Calcium 9.3 mg/dL (8.4-10.2) 11/01/18 04:35 Total Bilirubin 0.40 mg/dL (0.1-1.2) 10/31/18 18:17 AST 24 units/L (5-40) 10/31/18 18:17 ALT 27 units/L (7-56) 10/31/18 18:17 Alkaline Phosphatase 99 units/L (35-129) 10/31/18 18:17 Troponin T < 0.010 ng/mL (0.00-0.029) 10/31/18 18:17 Total Protein 8.2 g/dL (6.3-8.2) 10/31/18 18:17 Albumin 4.3 g/dL (3.9-5) 10/31/18 18:17 Albumin/Globulin Ratio 1.1 % 10/31/18 18:17 Urine Color Yellow (Yellow) 10/31/18 Unknown Urine Turbidity Clear (Clear) 10/31/18 Unknown Urine pH 5.0 (5.0-7.0) 10/31/18 Unknown Ur Specific [place] 1.010 (1.003-1.030) 10/31/18 Unknown Urine Protein <15 mg/dl mg/dL (Negative) 10/31/18 Unknown Urine Glucose (UA) Neg mg/dL (Negative) 10/31/18 Unknown Urine Ketones Neg mg/dL (Negative) 10/31/18 Unknown Urine Blood Sm (Negative) 10/31/18 Unknown Urine Nitrite Pos (Negative) 10/31/18 Unknown Urine Bilirubin Neg (Negative) 10/31/18 Unknown Urine Urobilinogen < 2.0 mg/dL (<2.0) 10/31/18 Unknown Ur Leukocyte Esterase Tr (Negative) 10/31/18 Unknown Urine WBC (Auto) 5.0 /HPF (0.0-6.0) 10/31/18 Unknown Urine RBC (Auto) 1.0 /HPF (0.0-6.0) 10/31/18 Unknown U Epithel Cells (Auto) 1.0 /HPF (0-13.0) 10/31/18 Unknown Urine Bacteria (Auto) 3+ /HPF (Negative) 10/31/18 Unknown Hyaline Casts 1 /LPF 10/31/18 Unknown Urine Mucus Few /HPF 10/31/18 Unknown Urine Opiates Screen Presumptive negative 10/31/18 Unknown Urine Methadone Screen Presumptive negative 10/31/18 Unknown Ur Barbiturates Screen Presumptive negative 10/31/18 Unknown Ur Phencyclidine Scrn Presumptive negative 10/31/18 Unknown Ur Amphetamines Screen Presumptive negative 10/31/18 Unknown U Benzodiazepines Scrn Presumptive negative 10/31/18 Unknown Urine Cocaine Screen Presumptive negative 10/31/18 Unknown U Marijuana (THC) Screen Presumptive negative 10/31/18 Unknown Drugs of Abuse Note Disclamer 10/31/18 Unknown Plasma/Serum Alcohol < 0.01 % (0-0.07) 10/31/18 18:17
--- NOTE | 2018-11-03 07:50 | Discharge Summary ---
Providers - Providers Date of Admission: 10/31/18 22:06 Attending physician: KARI BIRCH MD 10/31/18 22:38 Consult to Physician [CONS] Routine Comment: Consulting Provider: IRMA DON Physician Instructions: Reason For Exam: sz 11/02/18 11:18 Physical Therapy Evaluation and Treat [CONS] Routine Comment: Reason For Exam: difficulty in ambulation [facility] Reason for admission: seizure disorder Condition: Stable Pertinent studies: MRI of brain with contrast IMPRESSION: No acute intracranial process. Chronic cortical infarct in the superior right temporal lobe. Chronic white matter changes. Bilateral carotid Doppler IMPRESSION: No significant stenosis (less than 50 percent) of the bilateral carotid arteries. EEG Hospital course: 58-year-old woman with a history of CVA, depression comes to emergency room with complaints of having a seizure today, unclear how long the seizure lasted for. She complains of right leg weakness and numbness. She states she's had seizures before this year, not on any antiepileptic. Patient was admitted to the floor and severe workup was negative, patient was evaluated by neurology and recommended patient to be put on Keppra. Patient's weakness is chronic and no change from baseline. Patient uses cane. Patient didn't have any seizure episode after admission. Patient was hemodynamically stable and discharged home. Appropriate medication scripts were given. Patient's questions and concerns were addressed at the bedside. Disposition: DC-01 TO HOME OR SELFCARE Time spent for discharge: 32 minutes - Discharge Diagnoses (1) Generalized weakness Status: Acute (2) Right sided numbness Status: Chronic Comment: No change from baseline (3) Seizure-like activity Status: Acute Core Measure Documentation - Palliative Care Palliative Care/ Comfort Measures: Not Applicable - Core Measures Any of the following diagnoses?: history only (CVA) Exam - Physical Exam Narrative exam: Not in cardiopulmonary distress. The patient appeared well nourished and normally developed. Vital signs as documented. Head exam is unremarkable. No scleral icterus . Neck is without jugular venous distension, thyromegaly, or carotid bruits. Lungs are clear to auscultation. Cardiac exam reveals regular rate and Rhythm. First and second heart sounds normal. No murmurs, rubs or gallops. Abdominal exam reveals normal bowel sounds, no masses, no organomegaly and no aortic enlargement. Extremities are nonedematous and both femoral and pedal pulses are normal. 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 mild chronic LLE weakness. - Constitutional Vitals: Temp Pulse Resp BP Pulse Ox 98.8 F 79 16 96/59 97 11/03/18 05:08 11/03/18 05:08 11/03/18 05:08 11/03/18 05:08 11/03/18 05:08 Plan Activity: advance as tolerated Weight Bearing Status: Weight Bear as Tolerated Diet: low cholesterol Follow up with: ALDO OROPEZA MD [Primary Care Provider] - 3-5 Days Prescriptions: levETIRAcetam [Keppra TAB] 500 mg PO BID #60 tablet
[2018-11-03] MEDS: LOVENOX SUB-Q SCH (10:26)
[2018-11-03] MEDS: FLEXERIL PO SCH (10:26)
[2018-11-03] MEDS: PLAVIX PO SCH (10:26)
[2018-11-03] MEDS: celeXA PO SCH (10:26)
[2018-11-03] MEDS: BABY ASPIRIN PO SCH (10:27)
[2018-11-03] MEDS: KEPPRA PO SCH (10:27)
[2018-11-03 12:19] VITALS: BP 126/74
== END 2018-11-03 15:45 | disposition home or self-care (01) | DRG 101 ==
LOC: ED 18:00 → 4A 22:06 → 3A 22:56
PROVIDERS: ADMIT Internal Medicine; ATTEND Internal Medicine
DX: G40.909 Epilepsy, unspecified, not intractable, without status epilepticus (principal); R20.0 Anesthesia of skin; F32.9 Major depressive disorder, single episode, unspecified; Z86.73 Personal history of transient ischemic attack (TIA), and cerebral infarction without residual deficits; Z79.82 Long term (current) use of aspirin; Z79.899 Other long term (current) drug therapy
CPT/HCPCS: 36415; 70450; 70551; 70552; 80048; 80053; 80307; 80320; 81001; 84484; 85025; 85610; 85670; 85730; 90686; 90732; 93005; 93010; 93880; 95819; G0378; A9270-GY; G0480; J1650; J1953